=== PATIENT | male | born 1945 | race Two or more races ===

== ENCOUNTER 2018-09-27 10:56 | Emergency (ER) | payer MEDICARE ==
[2018-09-27 12:05] VITALS: BP 108/58
--- NOTE | 2018-09-27 12:09 | UC ---
Respiratory Complaint HPI - HPI Summary HPI Summary: 73 y/o male presents to the urgent care accompany by roommate c/o productive cough for the past month. Pt reports symptoms started w/ sinus congestion and yellowish nasal discharge. He has been taking Mucinex, and Dayquil PO to alleviate symptoms w/o any improvement. However her roommate also started w/ the cough a week later and she saw her PCP this week and was Rx Doxycycline PO, but she doesn't know what was the Dx. Pt's symptoms worsen yesterday w/ fever, body aches, chills, wheezing, mild SOB this morning, and decrease appetite. He has been drinking a lot of fluids. He has Hx of RA and was taken off Enbrel about 6 months ago and Rx Plaquenil PO instead. He also sees Dr Robert for Anemia since June/2018. He has a f/u appt w/ him in 2 days. Pt denies chest pain, dizziness, abdominal pain, N/V/D. - History of Current Complaint Chief Complaint: UCGeneralIllness Stated Complaint: COUGH Time Seen by Provider: 09/27/18 12:04 Hx Obtained From: Patient Onset/Duration: Gradual Onset, Lasting Weeks - 4 weeks, Still Present, Worse Since - yesterday Timing: Intermittent Episodes Severity Initially: Mild Severity Currently: Moderate Pain Intensity: 7 - body aches Pain Scale Used: 0-10 Numeric Character: Cough: Productive, Sputum Description: - yellowish Aggravating Factors: Recumbent Position Alleviating Factors: OTC Meds - Dayquill, Robitussin, tylenol Associated Signs And Symptoms: Positive: Fever, Chills, Wheezing, URI, Nasal Congestion, Sinus Discomfort - Risk Factors Pulmonary Embolism Risk Factors: Negative Cardiac Risk Factors: Smoking Pseudomonas Risk Factors: Negative Tuberculosis Risk Factors: Negative - Allergies/Home Medications Allergies/Adverse Reactions: Allergies Allergy/AdvReac Type Severity Reaction Status Date / Time No Known Allergies Allergy Verified 09/27/18 12:06 Home Medications: Home Medications D-Methorphan/PE/Acetaminophen [Day Time Cold-Flu Liquid] 30 ml PO Q4H PRN [History Confirmed 09/27/18] Hydroxychloroquine TAB* [Plaquenil TAB*] 200 mg PO BID 09/27/18 [History Confirmed 09/27/18] Spiriva Inhaler DEVICE* [Tiotropium Inhaler DEVICE*] 1 cap INH BEDTIME 09/27/18 [History Confirmed 09/27/18] guaiFENesin LIQ* [Robitussin*] 5 ml PO Q4H PRN 09/27/18 [History Confirmed 09/27] PMH/Surg Hx/FS Hx/Imm Hx Previously Healthy: Yes Other Endocrine History: RA Respiratory History: COPD GI/ History: Gastroesophageal Reflux - Surgical History Surgical History: Yes Surgery Procedure, Year, and Place: [facility] surgery right chest 2002 ? dx ? type surgery.Also,2003 left side of chest ? dx - Family History Known Family History: Positive: Cardiac Disease, Hypertension Family History: stroke - Social History Occupation: Retired Lives: With Family Alcohol Use: None Substance Use Type: None Smoking Status (MU): Former Smoker Have You Smoked in the Last Year: Yes Review of Systems All Other Systems Reviewed And Are Negative: Yes Constitutional: Positive: Fever, Chills, Fatigue, Other - body aches Skin: Positive: Negative Eyes: Positive: Negative ENT: Positive: Nasal Discharge - yellowish, Sinus Congestion, Sinus Pain/ Tenderness Respiratory: Positive: Shortness Of Breath, Cough - p[roductive w/ yellowish phlegm, Other - wheezing Cardiovascular: Positive: Negative Gastrointestinal: Positive: Negative Genitourinary: Positive: Negative Motor: Positive: Negative Neurovascular: Positive: Negative Musculoskeletal: Positive: Myalgia Neurological: Positive: Negative Psychological: Positive: Negative Is Patient Immunocompromised?: Yes Physical Exam - Summary Physical Exam Summary: Vital Signs Reviewed: Yes General: well developed, well nourished male sitting in the examining table w/o any apparent distress Eyes: Positive: Conjunctiva Clear - PERRLA, EOMI, fundi grossly normal ENT: Positive: Normal ENT inspection, Hearing grossly normal, Pharynx normal, Nasal congestion - edematous and erythematous nasal mucosa, Nasal drainage - yellowish drainage, TMs normal. Negative: Tonsillar swelling, Tonsillar exudate Neck: Positive: Supple, Nontender, No Lymphadenopathy Respiratory: no orthopnea or dyspnea. Able to speak in full sentences, no retractions or accessory muscle use, no tripod position, stridor, or head bobbing. Positive breath sounds bilaterally. diffuse scattered wheezing and rhonchi and mild crackles on b/L lungs, no rales. Cardiovascular: Positive: RRR, No Murmur, Pulses Normal, Brisk Capillary Refill Abdomen Description: Positive: Nontender, No Organomegaly, Soft. Negative: CVA Tenderness (R), CVA Tenderness (L) Bowel Sounds: Positive: Present Musculoskeletal Exam: Normal Musculoskeletal: Positive: Strength Intact, ROM Intact, No Edema Neurological Exam: Normal Psychological Exam: Normal Skin Exam: Normal Triage Information Reviewed: Yes Vital Signs: Initial Vital Signs Temp 97.0 F 09/27/18 11:59 Pulse 65 09/27/18 11:59 Resp 18 09/27/18 11:59 BP 108/58 09/27/18 11:59 Pulse Ox 99 09/27/18 11:59 Respiratory Course/Dx - Course Course Of Treatment: 73 y/o male presents to the urgent care accompany by roommate c/o productive cough for the past month. Pt reports symptoms started w/ sinus congestion and yellowish nasal discharge. He has been taking Mucinex, and Dayquil PO to alleviate symptoms w/o any improvement. However her roommate also started w/ the cough a week later and she saw her PCP this week and was Rx Doxycycline PO, but she doesn't know what was the Dx. Pt's symptoms worsen yesterday w/ fever, body aches, chills, wheezing, mild SOB this morning, and decrease appetite. He has been drinking a lot of fluids. He has Hx of RA and was taken off Enbrel about 6 months ago and Rx Plaquenil PO instead. He also sees Dr Robert for Anemia since June/2018. He has a f/u appt w/ him in 2 days. Pt denies chest pain, dizziness, abdominal pain, N/V/D. Hx obtained. Pt is hemodynamically stable, Vital signs: WNL. O2Sat: 97%. Pt w/ diffuse scattered wheezing and rhonchi and mild crackles on b/L lungs, no rales on examination. Chest X-ray ordered to r/o pneumonia. Impression: Mild interstitial lung disease w/o any radiological apparent acute abnormality as per radiologist. Pt with scattered wheezing on both lungs. Pt is a heavy smoker w/ a cough for 1 month and Hx of COPD. Pt w/ possible COPD exacerbation. Prednisone 60 mg PO ordered and Duoneb treatment ordered. Pt tolerated well medications and his lungs improved. Pt states feeling better. Pt will be tx for Acute Bronchitis, Rx Doxycycline PO , Prednisone taper dose and Inhaler. Pt given a paper script for a nebulizer machine and Duo neb neb treatment and Rx. Pt Strongly advised to f/u with his PCP or DR Robert in 2 days to make sure symptoms are improving. However if worsening symptoms, he should go immediately to the ER for further management. D /C instructions explained. Roommate and Pt understood and agreed with D/C instructions and left the clinic hemodynamically stable. - Differential Dx/Diagnosis Differential Diagnosis/HQI/PQRI: Asthma, Bronchitis, Exacerbation Of COPD, Influenza, Lower Resp Infection, Sinusitis, Other - pneumonia Provider Diagnosis: COPD with acute exacerbation, Bronchitis, Wheezing Discharge - Sign-Out/Discharge Documenting (check all that apply): Patient Departure - D/C home All imaging exams completed and their final reports reviewed: Yes - Discharge Plan Condition: Stable Disposition: HOME Prescriptions: Albuterol HFA INHALER* [Ventolin HFA Inhaler*] 2 puff INH Q6H PRN #1 mdi PRN Reason: cough/sob Albuterol/Ipratropium NEB.CARMELO* [Duoneb (Albuterol 2.5 MG/Ipratropium 0.5 MG)] 1 neb INH Q6H PRN #1 krista PRN Reason: Wheezing DOXYcycline CAP(*) [DOXYcycline 100MG CAP(*)] 100 mg PO BID #20 cap predniSONE TAB* [Deltasone 20 MG TAB*] 20 mg PO DAILY #8 tab Patient Education Materials: Acute Bronchitis (ED), COPD (Chronic Obstructive Pulmonary Disease) (ED) Referrals: Mariely Gould MD [Primary Care Provider] - 2 Days Additional Instructions: 1- Take Prednisone PO taper dose as directed starting tomorrow. First loading dose given today. 2- Take Doxycycline PO as directed to alleviate Bronchitis 2-Use the Duoneb nebulizer treatment as directed if your are able to get the nebulizer machine, otherwise use the Albutrerol inhaler w/ the aerochamber to alleviate SOB, and wheezing as directed . Increase fluid intake, rest and eat well. 3- If symptoms do not improve or worsen or your develop SOB with fever and severe wheezing please go immediately to the ER further evaluation and treatment. 4- F/u with your PCP or Dr Robert in 2-3 days for further management on your COPD and make sure your symptoms are improving - Billing Disposition and Condition Condition: STABLE Disposition: Home
[2018-09-27] MEDS ORDERED: Albuterol/Ipratropium NEB.SOL* Albuterol 2.5 MG/Ipratropium 0.5 MG 3 ML INH ONE (12:30)
[2018-09-27] MEDS ORDERED: predniSONE TAB* 20 MG PO ONE (12:31)
[2018-09-27 12:58] LABS: Influenza A Molecular NEGATIVE (Negative); Influenza B Molecular NEGATIVE (Negative)
== END 2018-09-27 13:44 | disposition home or self-care (01) ==
LOC: UCEAST 10:56
DX: J44.1 Chronic obstructive pulmonary disease with (acute) exacerbation (principal); R50.9 Fever, unspecified; D64.9 Anemia, unspecified; M06.9 Rheumatoid arthritis, unspecified; K21.9 Gastro-esophageal reflux disease without esophagitis; Z87.891 Personal history of nicotine dependence
CPT/HCPCS: 71046; 99202; A9270-GY; G0463; J7512

== ENCOUNTER 2019-09-29 15:08 | Emergency (ER) | payer MEDICARE ==
[2019-09-29 16:28] VITALS: BP 93/63
== END 2019-09-29 17:39 | disposition home or self-care (01) ==
LOC: UCEAST 15:08